=== PATIENT | female | born 1990 | race African-American/Black ===

== ENCOUNTER 2016-09-01 09:52 | Emergency (ER) | payer MEDICAID ==
[~2016-09-01] VITALS: Ht 154.9 cm; Wt 61.0 kg
[2016-09-01 09:58] VITALS: BP 110/61
== END 2016-09-01 19:36 | disposition left against medical advice (07) ==
LOC: ER 11:38
DX: K08.89 Other specified disorders of teeth and supporting structures (principal); Z53.21 Procedure and treatment not carried out due to patient leaving prior to being seen by health care provider

== ENCOUNTER 2016-09-02 00:17 | Emergency (ER) | payer MEDICAID, OTHER ==
[~2016-09-02] VITALS: Ht 154.9 cm; Wt 61.3 kg
[2016-09-02 07:00] VITALS: BP 132/91
[2016-09-02] MEDS ORDERED: KETOROLAC 60MG/2ML VIAL IM ONE (07:00)
== END 2016-09-02 07:52 | disposition home or self-care (01) ==
LOC: ER 00:17
DX: K02.9 Dental caries, unspecified (principal); F17.210 Nicotine dependence, cigarettes, uncomplicated; R03.0 Elevated blood-pressure reading, without diagnosis of hypertension
CPT/HCPCS: 96372; 99283; J1885

== ENCOUNTER 2017-05-08 10:12 | Emergency (ER) | payer MEDICAID, OTHER ==
[~2017-05-08] VITALS: Ht 154.9 cm; Wt 66.0 kg
[2017-05-08] MEDS ORDERED: PNV1TABL76 PO (10:31)
[2017-05-08 11:16] LABS: CLARITY URINE CLOUDY (CLEAR); COLOR URINE YELLOW (YELLOW); KETONES URINE NEGATIVE (NEGATIVE); LEUKOCYTE ESTERASE URINE 3+ (NEGATIVE); NITRITE URINE NEGATIVE (NEGATIVE); OCCULT BLOOD URINE NEGATIVE (NEGATIVE); PROTEIN URINE NEGATIVE (NEGATIVE); SPECIFIC GRAVITY URINE 1.021 (1.005-1.030); UROBILINOGEN URINE 0.2 E.U./dL (0.2-1.0)
[2017-05-08] MEDS ORDERED: MAGNESIUM/ALUMINUM HYDROXIDE/SIMETHICONE 30ML UDC PO STA (11:17)
[2017-05-08] MEDS ORDERED: ACETAMINOPHEN 325MG TABLET PO PRN (11:30)
[2017-05-08] MEDS ORDERED: FAMOTIDINE 20MG TABLET PO ONE (11:30)
[2017-05-08] MEDS ORDERED: ONDANSETRON 4MG ODT PO ONE (11:30)
[2017-05-08 11:49] LABS: BASOPHILS % 0.5 % (0.0-2.0); EOSINOPHILS % 1.1 % (0.0-5.0); HEMATOCRIT. 33.7 % (36.0-48.0); HEMOGLOBIN. 11.8 g/dL (12.0-16.0); LYMPHOCYTES % 27.2 % (20.0-50.0); MEAN CORPUSCULAR VOLUME 91.6 fL (81.0-99.0); MONOCYTES % 9.2 % (2.0-8.0); PLATELET 187 x1000/uL (130-400); RED BLOOD CELL COUNT 3.68 mill/uL (4.2-5.4); RED CELL DISTRIBUTION WIDTH 12.6 % (11.6-14.6)
[2017-05-08 11:57] LABS: INR 0.9; PROTHROMBIN TIME 9.8 sec (9.4-11.6)
[2017-05-08 12:01] LABS: CHLORIDE 106 mEq/L (98-107)
[2017-05-08 12:23] LABS: B-HCG QUANTITATIVE 23838 mIU/mL (<3)
[2017-05-08 15:30] VITALS: BP 118/78
== END 2017-05-08 15:51 | disposition home or self-care (01) ==
LOC: ER 10:46
DX: O99.612 Diseases of the digestive system complicating pregnancy, second trimester (principal); K29.70 Gastritis, unspecified, without bleeding; O23.42 Unspecified infection of urinary tract in pregnancy, second trimester; O99.332 Smoking (tobacco) complicating pregnancy, second trimester; F17.290 Nicotine dependence, other tobacco product, uncomplicated; Z3A.14 14 weeks gestation of pregnancy
CPT/HCPCS: 36415; 76700; 80053; 81003; 81025; 83690; 83880; 84484; 84702; 85025; 85610; 87086; 93005; 99285; 99406; Q0162